=== PATIENT | female | born 1950 | race Caucasian/White ===

== ENCOUNTER 2018-08-27 12:57 | Emergency (ER) | payer OTHER, BC ==
[2018-08-27 13:10] VITALS: BP 161/77; PULSE 96; TEMP 97.5; BMI 22.0
--- NOTE | 2018-08-27 14:19 | PDOC ---
History of Present Illness - General History Source: Patient Exam Limitations: No Limitations <Jose Juan Patrick - Last Filed: 08/27/18 15:18> - General History Source: Patient Exam Limitations: No Limitations - History of Present Illness Initial Comments: 08/27/18 15:19 The patient is a 68 year old female, with a significant past medical history of HTN, HLD, occular migraines, and anxiety (valium as needed), who presents to the emergency department with 2 weeks of increased tinnitus. The patient reports she has tinnitus at baseline for the past 10 years that is constant, worse at night and seems to vary with her HR, she had been followed by ENT many years ago. However the tinnitus seem to get much worse the past 2 weeks. The patient reports she is having trouble sleeping due to many recent events such as family/friend deaths. The patient notes she is experiencing palpitations typically in the evening and saw her dock loader on Wednesday and was started on metoprolol. The patient reports taking a valium 2.5mg, but it did not alleviate symptoms. The patient denies headache, double or blurry vision, speech changes, neck pain, back pain, chest pain or SOB. Denies any other symptoms. No new meds beside the metoprolol. Pt does not regularly use asa. She denies recent fevers, or chills. She denies recent nausea, vomit, diarrhea, melena, bpr or constipation. She denies recent dysuria, frequency, urgency or hematuria. Allergies: NKA Past surgical history: None reported. Social history: Nonsmoker. Daily EtOH use. Denies recreational drug use. Primary Care Physician: Dr. Akbar Herman <Lynne Bliss - Last Filed: 08/27/18 15:31> - General Chief Complaint: Blood Pressure Problem Stated Complaint: BLOOD PRESSURE PROBLEM Time Seen by Provider: 08/27/18 14:01 Past History - Past Medical History COPD: No Diabetes: Yes ("PRE-DIABETIC") GI Disorders: Yes (DIVERTICULITIS) HTN: Yes Hypercholesterolemia: Yes - Immunization History Immunization Up to Date: Yes - Suicide/Smoking/Psychosocial Hx Smoking History: Never smoked Hx Alcohol Use: Yes (DAILY) Drug/Substance Use Hx: No <Jose Juan Patrick - Last Filed: 08/27/18 15:18> <Dizenzo,Lynne - Last Filed: 08/27/18 15:31> - Past Medical History Allergies/Adverse Reactions: Allergies Allergy/AdvReac Type Severity Reaction Status Date / Time No Known Allergies Allergy Verified 08/27/18 13:01 Home Medications: Ambulatory Orders Diazepam [Valium] 2 mg PO DAILY PRN #7 tablet MDD 1 08/27/18 Metoprolol Succinate [Toprol Xl] 25 mg PO DAILY 08/27/18 Valsartan [Diovan] 160 mg PO DAILY 08/27/18 Review of Systems - Review of Systems Comments:: 08/27/18 15:31 CONSTITUTIONAL: No reported: Fever, Chills, Diaphoresis, Generalized Weakness, Malaise, Loss of Appetite HEENT: +worsening tinnitus pain. No reported: Rhinorrhea, Nasal Congestion, Throat Pain, Throat Swelling, Difficulty Swallowing, Mouth Swelling, Ear Pain, Eye Pain, Visual Changes CARDIOVASCULAR: No reported: Chest Pain, Syncope, Palpitations, Irregular Heart Rate, Lightheadedness, Peripheral Edema RESPIRATORY: No reported: Cough, Shortness of Breath, SOB with Exertion, Orthopnea, Wheezing , Stridor, Hemoptysis GASTROINTESTINAL: No reported: Abdominal pain, Abdominal Distension, Nausea, Vomiting, Diarrhea, Constipation, Melena, Hematochezia GENITOURINARY: No reported: Dysuria, Frequency, Urgency, Hesitancy, Flank Pain, Genital Pain MUSCULOSKELETAL: No reported: Myalgia, Arthralgia, Joint Swelling, Back pain, Neck Pain SKIN: No reported: Rash, Itching, Pallor HEMEATOLOGIC/IMMUNOLOGIC: No reported: Easy Bleeding, Easy Bruising, Lymphadenopathy, Frequent infections ENDOCRINE: No reported: Unexplained Weight Gain, Unexplained Weight Loss, Heat Intolerance , Cold Intolerance NEUROLOGIC: No reported: Headache, Focal Weakness, Paresthesias, Vertigo, Lightheadedness, Unsteady Gait, Seizure, Mental Status Changes, Incontinence PSYCHIATRIC: +Anxiety No reported: Depression <Javier Blissle - Last Filed: 08/27/18 15:31> *Physical Exam - Vital Signs Last Vital Signs Temp Pulse Resp BP Pulse Ox 97.5 F L 96 H 16 161/77 98 08/27/18 13:01 08/27/18 13:01 08/27/18 13:01 08/27/18 13:01 08/27/18 13:01 - Physical Exam Comments: 08/27/18 15:06 GENERAL: The patient is awake, alert, and fully oriented, Nontoxic - in no acute distress. HEAD: Normocephalic, atraumatic. EYES: extraocular movements intact, sclera anicteric, conjunctiva clear. ENT: Normal voice, Moist mucous membranes, no impacted cerumen NECK: Normal range of motion, supple, no bruilt appreciated LUNGS: Breath sounds equal, clear to auscultation bilaterally. No wheezes, no rhonchi, no rales. HEART: Regular rate and rhythm, normal S1 and S2 without murmur, rub or gallop. ABDOMEN: Soft, nontender, normoactive bowel sounds. No guarding, no rebound. . No CVA tenderness EXTREMITIES: Normal range of motion, no edema. No clubbing or cyanosis. No cords, erythema, or tenderness. NEUROLOGICAL: No facial assymetry, Normal speech, moving all 4 extremities spontaneously and symmetrically, normal gait PSYCH: Normal mood, normal affect. SKIN: Warm, Dry, normal turgor, <Jose Juan Patrick - Last Filed: 08/27/18 15:18> - Vital Signs Last Vital Signs Temp Pulse Resp BP Pulse Ox 97.5 F L 96 H 16 161/77 98 08/27/18 13:01 08/27/18 13:01 08/27/18 13:01 08/27/18 13:01 08/27/18 13:01 <Dizenzo,Lynne - Last Filed: 08/27/18 15:31> Moderate Sedation - Procedure Monitoring Vital Signs: Procedure Monitoring Vital Signs Temperature 97.5 F L 08/27/18 13:01 Pulse Rate 96 H 08/27/18 13:01 Respiratory Rate 16 08/27/18 13:01 Blood Pressure 161/77 08/27/18 13:01 O2 Sat by Pulse Oximetry (%) 98 08/27/18 13:01 <Jose Juan Patrick - Last Filed: 08/27/18 15:18> - Procedure Monitoring Vital Signs: Procedure Monitoring Vital Signs Temperature 97.5 F L 08/27/18 13:01 Pulse Rate 96 H 08/27/18 13:01 Respiratory Rate 16 08/27/18 13:01 Blood Pressure 161/77 08/27/18 13:01 O2 Sat by Pulse Oximetry (%) 98 08/27/18 13:01 <RuthyLynne - Last Filed: 08/27/18 15:31> Heart Score/ECG Review - ECG Impressions Comment:: 08/27/18 15:18 Twelve-lead EKG was performed and reviewed by me. There is normal sinus rhythm with a normal rate. rate of 72 LAD abnormal r wave progression q wave in lead III <Jose Juan Patrick - Last Filed: 08/27/18 15:18> Medical Decision Making - Medical Decision Making 08/27/18 14:17 68y F hx of htn, hl, tinnitus, anxiety, ocular migrines presents with 2 weeks of increased tinnitus. pt notes baseline tinnitus for the last 10 years that are bilateral, since starting hypertensive meds. She was evaluted by ENT many years ago and her tinnitus is constant, usually worse at night when it is quiet , and bearable. But for the past 2 weeks it has gotten much worse - she does admit to having increased stressors via deaths and being unable to sleep recently. she denies any associated headache, visoin changes, neck pain, back pain, numbnes/stingling/ewakness, changes in her speech, cp, abd pain, n/v/d. Pt notes she has been having occasoinal palpitatoins in the evening, had seen her dock loader who starte her on metoprolol that she took for 3 days without any change in her sypmtoms. pt notes that here in the ER her tinnitus is improved, but probably because there is increased ambient noise. pt took 2.5 mg of valium this AM but has not really helped her sypmtoms. Pt has an ENT ammpot scheduled in september PMD: Batsheva 08/27/18 15:09 will ck EKG to eval for her palpitatons pt had blood work done last month at PMD and was normal daniela lrefer pt to ENT exam unrmarkable, intact neuro discussed strategies to improve her tinnitus return precautions were discussed I discussed the physical exam findings, ancillary test results and final diagnoses with the patient. I answered all of the patient's questions. The patient was satisfied with the care received and felt comfortable with the discharge plan and treatment plan. The patient will call their primary care physician within 24 hours to arrange follow-up and will return to the Emergency Department with any new, persistent or worsening symptoms. A portion of this note was documented by scribe services under my direction. I have reviewed the details of the note, within reason, and agree with the documentation with the following case summary and management plan written by me <Jose Juan Patrick - Last Filed: 08/27/18 15:18> *DC/Admit/Observation/Transfer - Discharge Dispostion Decision to Admit order: No <Jose Juan Patrick - Last Filed: 08/27/18 15:18> - Attestations Scribe Attestion: 08/27/18 15:31 Documentation prepared by Lynne Bliss, acting as medical records specialist for Jose Juan Patrick MD. <Lynne Bliss - Last Filed: 08/27/18 15:31> Diagnosis at time of Disposition: Tinnitus of both ears - Discharge Dispostion Disposition: HOME Condition at time of disposition: Improved - Prescriptions Prescriptions: Diazepam [Valium] 2 mg PO DAILY PRN #7 tablet MDD 1 PRN Reason: Anxiety - Referrals Referrals: Akbar Herman MD [Primary Care Provider] - Luis Garza MD [Staff Physician] - - Patient Instructions Printed Discharge Instructions: DI for Tinnitus Additional Instructions: Return to the emergency department immediately with ANY new, persistent or worsening symptoms including any headache, vision changes, nausea/vomiting, numbness/tngling/weakness, chest pain, shortness of breath, back pain or any other concerns Use a white noise machine to see if it helps you with the tinnitus You MUST call and follow up with your doctor and ENT for further evaluation of your symptoms. Results were discussed with you. Please make sure your doctor reviews the results of your emergency evaluation. - Post Discharge Activity
--- NOTE | 2018-08-28 11:17 | EKG ---
Test Reason : Blood Pressure : / mmHG Vent. Rate : 072 BPM Atrial Rate : 072 BPM P-R Int : 178 ms QRS Dur : 068 ms QT Int : 410 ms P-R-T Axes : 051 -33 054 degrees QTc Int : 448 ms SINUS RHYTHM WITH PREMATURE SUPRAVENTRICULAR COMPLEXES LEFT AXIS DEVIATION SEPTAL INFARCT (CITED ON OR BEFORE 12-NOV-1999) NONSPECIFIC ST ABNORMALITY ABNORMAL ECG WHEN COMPARED WITH ECG OF 29-JUL-2012 11:51, PREMATURE VENTRICULAR COMPLEXES ARE NO LONGER PRESENT PREMATURE SUPRAVENTRICULAR COMPLEXES ARE NOW PRESENT QUESTIONABLE CHANGE IN INITIAL FORCES OF SEPTAL LEADS Confirmed by IRVIN JOVEL MD ([id number]) on 08/28/2018 11:16:41 AM Referred By: Confirmed By:IRVIN JOVEL MD
== END 2018-08-27 15:33 | disposition home or self-care (01) ==
LOC: JER 12:57
DX: H93.13 Tinnitus, bilateral (principal); I10 Essential (primary) hypertension; E78.5 Hyperlipidemia, unspecified; F41.9 Anxiety disorder, unspecified; Z86.69 Personal history of other diseases of the nervous system and sense organs
CPT/HCPCS: 93005; 93010; 99282-25

== ENCOUNTER 2018-09-01 02:23 | Emergency (ER) | payer OTHER, BC ==
[2018-09-01 03:44] VITALS: TEMP 98.1; BMI 22.0
--- NOTE | 2018-09-01 03:53 | PDOC ---
Attending Attestation - Resident Resident Name: MiguelAkbar stroud - ED Attending Attestation I have performed the following: I have examined & evaluated the patient, The case was reviewed & discussed with the resident, I agree w/resident's findings & plan - HPI HPI: 09/01/18 05:45 68 yo female with palpitations and anxiey - Physicial Exam PE: 09/01/18 05:45 agree with resident exam - Medical Decision Making 09/01/18 05:45 68 yo female with rapid heart beat EKG showed a sinus tach at 107 bpm pt given metoprolol 25mg po in ED will d/c on short term ativan , pt admits to excessive anxiety due to life stressors she has agreed to follow up with her pcp
[2018-09-01 04:10] LABS: BASO % 0.8 % (0-2.0); EOS % 1.1 % (0-4.5); HEMATOCRIT 38.8 % (32.4-45.2); HEMOGLOBIN 13.7 GM/dL (10.7-15.3); LYMPH % 25.4 % (8-40); MCH 34.8 pg (25.7-33.7); MCHC 35.4 g/dl (32.0-36.0); MEAN CELL VOLUME 98.5 fl (80-96); MEAN PLT VOLUME 6.8 fl (7.5-11.1); MONO % 9.7 % (3.8-10.2); PLATELET COUNT 268 K/MM3 (134-434); RBC 3.94 M/mm3 (3.60-5.2); RDW 12.8 % (11.6-15.6); WHITE BLOOD COUNT 6.5 K/mm3 (4.0-10.0)
[2018-09-01] MEDS ORDERED: SODIUM CHLORIDE 1,000 ML IV STA (04:16)
[2018-09-01 04:23] LABS: INR 0.82 (0.83-1.09); PROTHROMBIN TIME (PATIENT) 9.7 SEC (9.7-13.0)
[2018-09-01] MEDS ORDERED: metoPROLOL SUCCINATE 25 MG TAB.SR.24H (FP) PO ONE (04:30)
--- NOTE | 2018-09-01 04:51 | PDOC ---
History of Present Illness - General Chief Complaint: Irregular Heart Beat Stated Complaint: RAPID HEART BEAT Time Seen by Provider: 09/01/18 03:46 History Source: Patient Exam Limitations: No Limitations - History of Present Illness Initial Comments: 09/01/18 04:34 Patient is a 68F with history of HTN, anxiety, tachycardia, and ocular migraines here today with palpitations that started yesterday evening. Patient denies chest pain, shortness of breath. Patient denies fevers, chills, cough, nausea, vomiting, dysuria, abdominal pain. Denies leg swelling and history of blood clots. Patient states that she was taking metoprolol until 3 days ago but stopped on her own because she did not like the way it felt. She took a single dose of diltiazem two days ago but stopped taking that because she did not like the way it felt either. She was not able to better explain about what she didn' t like about how she felt. Patient was recently evaluated for tinnitus and palpitations. Past History - Past Medical History Allergies/Adverse Reactions: Allergies Allergy/AdvReac Type Severity Reaction Status Date / Time No Known Allergies Allergy Verified 08/27/18 13:01 Home Medications: Ambulatory Orders Metoprolol Succinate [Toprol Xl] 25 mg PO DAILY 08/27/18 Valsartan [Diovan] 150 mg PO DAILY 08/27/18 Bimatoprost [Lumigan] 1 drop IO HS 09/01/18 Diazepam [Valium] 5 mg PO DAILY PRN MDD 1 09/01/18 COPD: No Diabetes: Yes ("PRE-DIABETIC") GI Disorders: Yes (DIVERTICULITIS) HTN: Yes Hypercholesterolemia: Yes Other medical history: ANXIETY, ARTHRITIS - Immunization History Immunization Up to Date: Yes - Suicide/Smoking/Psychosocial Hx Smoking History: Never smoked Hx Alcohol Use: Yes (2 GLASSES WINE ON OCCASSION) Drug/Substance Use Hx: No Review of Systems - Review of Systems Able to Perform ROS?: Yes Comments:: 09/01/18 05:07 GENERAL/CONSTITUTIONAL: No fever or chills. No weakness. HEAD, EYES, EARS, NOSE AND THROAT: No change in vision. No ear pain or discharge. No sore throat. CARDIOVASCULAR: No chest pain or shortness of breath RESPIRATORY: No cough, wheezing, or hemoptysis. GASTROINTESTINAL: No nausea, vomiting, diarrhea or constipation. GENITOURINARY: No dysuria, frequency, or change in urination. MUSCULOSKELETAL: No joint or muscle swelling or pain. No neck or back pain. SKIN: No rash NEUROLOGIC: No headache, vertigo, loss of consciousness, or change in strength/ sensation. HEMATOLOGIC/LYMPHATIC: No anemia, easy bleeding, or history of blood clots. *Physical Exam - Vital Signs Last Vital Signs Temp Pulse Resp BP Pulse Ox 98.1 F 122 H 17 181/90 H 100 09/01/18 03:41 09/01/18 03:41 09/01/18 03:41 09/01/18 03:41 09/01/18 03:41 - Physical Exam Comments: 09/01/18 05:08 GENERAL: Awake, alert, and fully oriented, in no acute distress HEAD: No signs of trauma, normocephalic, atraumatic EYES: PERRLA, EOMI, sclera anicteric, conjunctiva clear ENT: Auricles normal inspection, hearing grossly normal, nares patent, oropharynx clear without exudates. Moist mucosa NECK: Normal ROM, supple, no lymphadenopathy, JVD, or masses LUNGS: No distress, speaks full sentences, clear to auscultation bilaterally HEART: Tachycardic, normal S1 and S2, no murmurs, rubs or gallops, peripheral pulses normal and equal bilaterally. ABDOMEN: Soft, nontender, normoactive bowel sounds. No guarding, no rebound. No masses EXTREMITIES: Normal inspection, Normal range of motion, no edema. No clubbing or cyanosis. NEUROLOGICAL: Cranial nerves II through XII grossly intact. Normal speech, normal gait, no focal sensorimotor deficits SKIN: Warm, Dry, normal turgor, no rashes or lesions noted. Moderate Sedation - Procedure Monitoring Vital Signs: Procedure Monitoring Vital Signs Temperature 98.1 F 09/01/18 03:41 Pulse Rate 122 H 09/01/18 03:41 Respiratory Rate 17 09/01/18 03:41 Blood Pressure 181/90 H 09/01/18 03:41 O2 Sat by Pulse Oximetry (%) 100 09/01/18 03:41 ED Treatment Course - LABORATORY CBC & Chemistry Diagram: 09/01/18 04:00 09/01/18 04:00 - ADDITIONAL ORDERS Additional order review: Laboratory Results 09/01/18 04:00 PT with INR 9.70 INR 0.82 L 09/01/18 04:00 RBC 3.94 MCV 98.5 H MCHC 35.4 RDW 12.8 MPV 6.8 L Neutrophils % 63.0 Lymphocytes % 25.4 Monocytes % 9.7 Eosinophils % 1.1 Basophils % 0.8 - RADIOLOGY Radiology Studies Ordered: Category Date Time Status CHEST PA & LAT [RAD] Stat Radiology 09/01/18 03:57 Taken Medical Decision Making - Medical Decision Making 09/01/18 05:08 Patient is 68F with history of HTN, anxiety, tachycardia, ocular migraine here today with palpitations. Vitals notable for initial HR of 122. Follow up 107. DDx includes, but is not limited to: rebound tachycardia 2/2 med discontinuation , anxiety, acs, metabolic derangement. EKG shows sinus tachycardia with no st elevations/depressions. Normal intervals. Normal t waves. Considered PE, infections sources of sinus tachycardia, but no chest pain/sob, no infectious signs. Will give patient's home dose of metoprolol and assess labs. CXR clear. Likely discharge home. 09/01/18 05:45 CBC normal. CMP reassuring. Trop negative. Patient continues to be asymptomatic since arrival. Patient states that she has been extremely anxious about several life stressors and has recently ran out of valium. Will discharge with ativan to take at home. Last HR 105. *DC/Admit/Observation/Transfer Diagnosis at time of Disposition: Palpitations - Discharge Dispostion Disposition: HOME Condition at time of disposition: Good Decision to Admit order: No - Referrals - Patient Instructions Printed Discharge Instructions: DI for Arrhythmias Additional Instructions: Please continue to take metoprolol until you see your doctor. Please call them this morning to make an appointment. Please return to the ED immediately if you have any new, worsening or concerning symptoms, especially fever, chest pain and shortness of breath. - Post Discharge Activity
[2018-09-01] MEDS ORDERED: METOPROLOL TARTRATE 25 MG TABLET (FP) ONE (05:29)
[2018-09-01 05:34] LABS: ALBUMIN 4.3 g/dl (3.4-5.0); ALK PHOS 69 U/L (45-117); ANION GAP 6 MMOL/L (8-16); BILIRUBIN,TOTAL 0.4 mg/dL (0.2-1); BLOOD UREA NITROGEN 17 mg/dL (7-18); CALCIUM 9.7 mg/dL (8.5-10.1); CHLORIDE 98 mmol/L (98-107); CO2 28 mmol/L (21-32); CREATININE 0.9 mg/dL (0.55-1.3); GLUCOSE,RANDOM 100 mg/dL (74-106); MAGNESIUM 2.2 mg/dL (1.8-2.4); POTASSIUM 4.8 mmol/L (3.5-5.1); SGOT/AST 19 U/L (15-37); SGPT/ALT 17 U/L (13-61); SODIUM 132 mmol/L (136-145)
[2018-09-01 06:04] VITALS: BP 159/96; PULSE 105
--- NOTE | 2018-09-01 14:16 | EKG ---
Test Reason : Blood Pressure : / mmHG Vent. Rate : 105 BPM Atrial Rate : 105 BPM P-R Int : 174 ms QRS Dur : 068 ms QT Int : 336 ms P-R-T Axes : 070 -27 070 degrees QTc Int : 444 ms SINUS TACHYCARDIA SEPTAL INFARCT (CITED ON OR BEFORE 12-NOV-1999) ABNORMAL ECG WHEN COMPARED WITH ECG OF 27-AUG-2018 15:04, PREMATURE SUPRAVENTRICULAR COMPLEXES ARE NO LONGER PRESENT Confirmed by SKINNY ANGELES, JUAN ([id number]) on 09/01/2018 2:16:32 PM Referred By: Confirmed By:JUAN BABB MD
== END 2018-09-01 06:21 | disposition home or self-care (01) ==
LOC: JER 02:23
DX: R00.2 Palpitations (principal); I10 Essential (primary) hypertension; F41.9 Anxiety disorder, unspecified; R73.03 Prediabetes
CPT/HCPCS: 36415; 71046-TC-FY; 80053; 82550; 83735; 84484; 85025; 85610; 93005; 93010; 99283-25; J7030

== ENCOUNTER 2019-05-19 16:51 | Emergency (ER) | payer OTHER, BC ==
[2019-05-19 17:10] VITALS: BMI 21.7
--- NOTE | 2019-05-19 17:13 | PDOC ---
Rapid Medical Evaluation Chief Complaint: Pain, Acute Time Seen by Provider: 05/19/19 17:07 Medical Evaluation: Allergies Allergy/AdvReac Type Severity Reaction Status Date / Time No Known Allergies Allergy Verified 08/27/18 13:01 05/19/19 17:08 I have performed a brief in-person evaluation of this patient. The patient presents with a chief complaint of: Pt w/ h/o diverticulosis p/w 4 days of suprapubic pain, temp of 100 last night, (+)mucus coming out of the rectum. Last BM was 5 days ago. No urinary symptoms, She called her PMD who told her to go to the ER Pertinent physical exam findings: Pt in slight discomfort from pain I have ordered the following: CBC, CMP, UA, Ucx The patient will proceed to the ED for further evaluation. Discharge Disposition - Diagnosis Abdominal pain - Referrals - Patient Instructions - Post Discharge Activity
[2019-05-19 18:01] LABS: BASO % 0.8 % (0-2.0); EOS % 0.5 % (0-4.5); HEMATOCRIT 35.2 % (32.4-45.2); LYMPH % 12.9 % (8-40); MCH 33.6 pg (25.7-33.7); MCHC 34.3 g/dl (32.0-36.0); MEAN PLT VOLUME 6.9 fl (7.5-11.1); MONO % 10.2 % (3.8-10.2); NEUT % 75.6 % (42.8-82.8); PLATELET COUNT 250 K/MM3 (134-434); RBC 3.59 M/mm3 (3.60-5.2); RDW 12.5 % (11.6-15.6); WHITE BLOOD COUNT 11.7 K/mm3 (4.0-10.0)
[2019-05-19] MEDS ORDERED: ONDANSETRON 4 MG/2 ML VIAL IVPB ONE (18:09)
[2019-05-19] MEDS ORDERED: SODIUM CHLORIDE 1,000 ML IV STA (18:09)
[2019-05-19 18:13] LABS: EPI CELLS 0.4 /HPF (0-5/HPF); HYALINE CASTS 0 /lpf (0-8); URINE APPEARANCE CLEAR; URINE BACTERIA 0.5 /hpf (NEGATIVE); URINE BILIRUBIN NEGATIVE (NEGATIVE); URINE COLOR YELLOW; URINE GLUCOSE (UA) NEGATIVE (NEGATIVE); URINE KETONE NEGATIVE (NEGATIVE); URINE LEUK ESTERASE 1+ (NEGATIVE); URINE NITRITE NEGATIVE (NEGATIVE); URINE PROTEIN NEGATIVE (NEGATIVE); URINE RBC 7 /hpf (0-4); URINE UROBILINOGEN 0.2 mg/dL (0.2-1.0); URINE WBC 5 /hpf (0-5)
--- NOTE | 2019-05-19 18:13 | PDOC ---
History of Present Illness - General Chief Complaint: Pain, Acute Stated Complaint: ABP PAIN Time Seen by Provider: 05/19/19 17:07 History Source: Patient - History of Present Illness Initial Comments: 05/19/19 18:07 68 year old female x 4 days with suprapubic pain tmax, 100, bloating, passing mucous, pain worse with eating. denies urinary symptoms, flank pain, chest pain , patient reports sinus congestion. History of diverticulosis, glaucoma, hypertension, diabetes, ocular migraines with aura, osteoporosis. HX total hysterectomy. Dr. herman 05/19/19 18:47 Past History - Past Medical History Allergies/Adverse Reactions: Allergies Allergy/AdvReac Type Severity Reaction Status Date / Time No Known Allergies Allergy Verified 05/19/19 17:10 Home Medications: Ambulatory Orders Metoprolol Succinate [Toprol Xl] 25 mg PO DAILY 08/27/18 Valsartan [Diovan] 150 mg PO DAILY 08/27/18 Bimatoprost [Lumigan] 1 drop IO HS 09/01/18 Diazepam [Valium] 5 mg PO DAILY PRN MDD 1 09/01/18 LORazepam [Ativan] 0.5 mg PO BID PRN 3 Days #6 tablet MDD 1.0mg 09/01/18 Cefpodoxime Proxetil [Vantin -] 200 mg PO Q12H #20 tablet 05/19/19 metroNIDAZOLE [Flagyl -] 500 mg PO TID #30 tablet 05/19/19 COPD: No Diabetes: Yes ("PRE-DIABETIC") GI Disorders: Yes (DIVERTICULITIS) HTN: Yes Hypercholesterolemia: Yes - Immunization History Immunization Up to Date: Yes - Psycho Social/Smoking Cessation Hx Smoking History: Never smoked Hx Alcohol Use: Yes (WINE DAILY) Drug/Substance Use Hx: No Review of Systems - Review of Systems Able to Perform ROS?: Yes Is the patient limited Greek proficient: No Constitutional: No: Symptoms Reported, See HPI, Chills, Diaphoresis, Fever, Loss of Appetite, Malaise, Night Sweats, Weakness, Weight Stable, Unintentional Wgt. Loss, Unexplained wgt Loss, Other *Physical Exam - Vital Signs Last Vital Signs Temp Pulse Resp BP Pulse Ox 99.0 F 106 H 16 130/76 97 05/19/19 17:07 05/19/19 17:07 05/19/19 17:07 05/19/19 17:07 05/19/19 17:07 - Physical Exam General Appearance: Yes: Appropriately Dressed HEENT: positive: Nasal Congestion Respiratory/Chest: positive: Lungs Clear, Normal Breath Sounds Cardiovascular: positive: Regular Rhythm, Tachycardia Gastrointestinal/Abdominal: positive: Normal Bowel Sounds, Tender (suprapubic area/ LLQ), Soft Musculoskeletal: positive: Normal Inspection. negative: CVA Tenderness Extremity: positive: Normal Inspection, Normal Range of Motion Integumentary: positive: Normal Color, Dry, Warm Neurologic: positive: Fully Oriented, Alert ED Treatment Course - LABORATORY CBC & Chemistry Diagram: 05/19/19 17:35 05/19/19 17:35 - ADDITIONAL ORDERS Additional order review: 05/19/19 17:35 RBC 3.59 L MCV 98.0 H MCHC 34.3 RDW 12.5 MPV 6.9 L Neutrophils % 75.6 Lymphocytes % 12.9 D Monocytes % 10.2 Eosinophils % 0.5 Basophils % 0.8 - RADIOLOGY Radiology Studies Ordered: Category Date Time Status ABDOMEN & PELVIS CT WITH CONTR [CT] Stat CT Scan 05/19/19 18:05 Ordered ED Progress Note - Progress Note Progress Note: 05/19/19 18:20 A: lower abdominal pain r/o diverticulitis P: labs CTAP IVF zofran Medical Decision Making - Medical Decision Making 05/19/19 19:55 CTAP patient refused IV contrast, patient refused zofran and IVF 05/19/19 21:35 Acute diverticulitis without abscess or free air. Patient will be given first dose IV antibiotics. 05/19/19 21:46 Discharge - Discharge Information Problems reviewed: Yes Clinical Impression/Diagnosis: Acute diverticulitis Abdominal pain Qualifiers: Abdominal location: lower abdomen, unspecified Qualified Code(s): R10.30 - Lower abdominal pain, unspecified Disposition: HOME - Additional Discharge Information Prescriptions: Cefpodoxime Proxetil [Vantin -] 200 mg PO Q12H #20 tablet metroNIDAZOLE [Flagyl -] 500 mg PO TID #30 tablet - Follow up/Referral Referrals: Akbar Herman MD [Primary Care Provider] - - Patient Discharge Instructions Patient Printed Discharge Instructions: DI for Abdominal Pain-Adult Additional Instructions: Take Cefpodoxime and Flagyl as prescribed. Drink plenty of fluids. Maintain a clear liquid diet until your abdominal pain goes away. It is important that you follow-up with a service technician as soon as possible. Return to the emergency room for any worsening symptoms. - Post Discharge Activity Work/Back to School Note: Back to Work
[2019-05-19 18:17] LABS: ALBUMIN 3.9 g/dl (3.4-5.0); BILIRUBIN,TOTAL 0.7 mg/dL (0.2-1); BLOOD UREA NITROGEN 12.1 mg/dL (7-18); CALCIUM 9.3 mg/dL (8.5-10.1); CREATININE 0.9 mg/dL (0.55-1.3); POTASSIUM 4.4 mmol/L (3.5-5.1); TOT PROT 7.3 g/dl (6.4-8.2)
[2019-05-19] MEDS ORDERED: ONDANSETRON 4 MG/2 ML VIAL ONE (18:23)
--- NOTE | 2019-05-19 18:59 | PDOC ---
*Physical Exam - Vital Signs Last Vital Signs Temp Pulse Resp BP Pulse Ox 99.0 F 106 H 16 130/76 97 05/19/19 17:07 05/19/19 17:07 05/19/19 17:07 05/19/19 17:07 05/19/19 17:07 ED Treatment Course - LABORATORY CBC & Chemistry Diagram: 05/19/19 17:35 05/19/19 17:35 - ADDITIONAL ORDERS Additional order review: Laboratory Results 05/19/19 05/19/19 17:45 17:35 Sodium 132 L Potassium 4.4 Chloride 99 Carbon Dioxide 26 Anion Gap 7 L BUN 12.1 Creatinine 0.9 Est GFR (CKD-EPI)AfAm 75.61 Est GFR (CKD-EPI)NonAf 65.24 Random Glucose 111 H Calcium 9.3 Total Bilirubin 0.7 AST 11 L ALT 16 Alkaline Phosphatase 63 Total Protein 7.3 Albumin 3.9 Urine Color Yellow Urine Appearance Clear Urine pH 5.0 Ur Specific [place] 1.012 Urine Protein Negative Urine Glucose (UA) Negative Urine Ketones Negative Urine Blood 2+ H Urine Nitrite Negative Urine Bilirubin Negative Urine Urobilinogen 0.2 Ur Leukocyte Esterase 1+ H Urine WBC (Auto) 5 Urine RBC (Auto) 7 Urine Casts (Auto) 0 U Epithel Cells (Auto) 0.4 Urine Bacteria (Auto) 0.5 05/19/19 17:35 RBC 3.59 L MCV 98.0 H MCHC 34.3 RDW 12.5 MPV 6.9 L Neutrophils % 75.6 Lymphocytes % 12.9 D Monocytes % 10.2 Eosinophils % 0.5 Basophils % 0.8 Medical Decision Making - Medical Decision Making 05/19/19 18:43 Pt seen and examined by [employer] Akbar Huggins was available for consultation Agree with plan Pt pending CT Discharge - Discharge Information Problems reviewed: Yes Clinical Impression/Diagnosis: Acute diverticulitis Abdominal pain Qualifiers: Abdominal location: lower abdomen, unspecified Qualified Code(s): R10.30 - Lower abdominal pain, unspecified Disposition: HOME - Additional Discharge Information Prescriptions: Cefpodoxime Proxetil [Vantin -] 200 mg PO Q12H #20 tablet metroNIDAZOLE [Flagyl -] 500 mg PO TID #30 tablet - Follow up/Referral Referrals: Akbar Herman MD [Primary Care Provider] - - Patient Discharge Instructions Patient Printed Discharge Instructions: DI for Abdominal Pain-Adult Additional Instructions: Take Cefpodoxime and Flagyl as prescribed. Drink plenty of fluids. Maintain a clear liquid diet until your abdominal pain goes away. 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 Return to the emergency room for any worsening symptoms. - Post Discharge Activity Work/Back to School Note: Back to Work
[2019-05-19] MEDS ORDERED: CEFTRIAXONE 1,000 MG in DEXTROSE 5%-WATER - 50 ML IVPB ONE (21:26)
[2019-05-19] MEDS ORDERED: CEFTRIAXONE 1 GM/50 ML BAG ONE (21:56)
[2019-05-19 22:41] VITALS: BP 128/72; PULSE 92; TEMP 98.1
== END 2019-05-19 22:41 | disposition home or self-care (01) ==
LOC: JER 16:51
DX: R10.30 Lower abdominal pain, unspecified (principal); K57.92 Diverticulitis of intestine, part unspecified, without perforation or abscess without bleeding; I10 Essential (primary) hypertension; E11.9 Type 2 diabetes mellitus without complications; G43.909 Migraine, unspecified, not intractable, without status migrainosus; H40.9 Unspecified glaucoma; M81.0 Age-related osteoporosis without current pathological fracture
CPT/HCPCS: 36415; 74176-TC; 80053; 81003; 85025; 87086; 96365; 96368; 99283-25

== ENCOUNTER 2021-03-09 18:41 | Emergency (ER) | payer OTHER, BC ==
[2021-03-09 18:46] VITALS: TEMP 98; BMI 20.5
[2021-03-09] MEDS ORDERED: METOCLOPRAMIDE HCL 10 MG TABLET (FP) PO ONE ×2 (19:24→19:31)
[2021-03-09] MEDS ORDERED: diphenhydrAMINE HCL 25 MG CAPSULE (FP) PO ONE ×2 (19:24→19:31)
[2021-03-09 21:04] VITALS: BP 146/78; PULSE 80
== END 2021-03-09 21:03 | disposition home or self-care (01) ==
LOC: JER 18:41
DX: G43.001 Migraine without aura, not intractable, with status migrainosus (principal); T88.1XXA Other complications following immunization, not elsewhere classified, initial encounter
CPT/HCPCS: 70450-TC; 99284-25